=== PATIENT | female | born 1990 | race Caucasian/White ===

== ENCOUNTER 2017-02-02 12:44 | Emergency (ER) | payer OTHER ==
[2017-02-02 13:04] VITALS: BP 121/77; PULSE 88; TEMP 98; BMI 33.8
[2017-02-02 14:39] LABS: URINE APPEARANCE SLCLOUDY; URINE BILIRUBIN NEGATIVE (NEGATIVE); URINE BLOOD NEGATIVE (NEGATIVE); URINE COLOR YELLOW; URINE GLUCOSE (UA) NEGATIVE (NEGATIVE); URINE KETONE TRACE (NEGATIVE); URINE NITRITE NEGATIVE (NEGATIVE); URINE UROBILINOGEN NEGATIVE E.U./dl (0.2-1.0)
[2017-02-02 14:43] LABS: URINE LEUK ESTERASE 3+ (NEGATIVE); URINE PROTEIN 1+ (NEGATIVE)
[2017-02-02 14:45] LABS: URINE MUCUS FEW; URINE RBC 17 /hpf (0-3); URINE WBC 78 /hpf (3-5)
[2017-02-02] MEDS ORDERED: IBUPROFEN 600 MG TABLET (FP) PO ONE (15:36)
--- NOTE | 2017-02-02 15:39 | PDOC ---
History of Present Illness - General Chief Complaint: Vaginal Sxs Stated Complaint: VAGINAL PROBLEM Time Seen by Provider: 02/02/17 15:10 History Source: Patient Exam Limitations: No Limitations - History of Present Illness Travel History: No Initial Comments: 02/02/17 15:34 26 yr female with c/o genital herpes for 4 days given antiviral medications yesterday started yesterday. Pt has burning with urination. Pt was treated for chlamydia and ghonorrhea 3 days ago. Pt denies abd pain neg fever or chills neg diarrhea. Pain Radiation: reports: no radiation Past History - Past Medical History Allergies/Adverse Reactions: Allergies Allergy/AdvReac Type Severity Reaction Status Date / Time No Known Allergies Allergy Verified 02/02/17 13:02 Home Medications: Ambulatory Orders Ibuprofen 800 mg PO TID PRN #25 tablet 02/02/17 Other medical history: none - Psycho/Social/Smoking Cessation Hx Suicidal Ideation: No Smoking History: Never smoked Have you smoked in the past 12 months: No Information on smoking cessation initiated: No Hx Alcohol Use: No Drug/Substance Use Hx: No *Physical Exam - Vital Signs Last Vital Signs Temp Pulse Resp BP Pulse Ox 98.0 F 88 18 121/77 100 02/02/17 13:02 02/02/17 13:02 02/02/17 13:02 02/02/17 13:02 02/02/17 13:02 - Physical Exam Comments: 02/02/17 15:39 General Appearance: Yes: Nourished, Appropriately Dressed HEENT: positive: EOMI, JOHNNY Neck: negative: Tender Respiratory/Chest: positive: Lungs Clear, Normal Breath Sounds Cardiovascular: positive: Regular Rhythm, Regular Rate Female Pelvic Exam: positive: lesions. negative: CMT, discharge Rectal Exam: positive: other (anus with multiple macular ulcerations ) Musculoskeletal: positive: Normal Inspection Extremity: positive: Normal Capillary Refill, Normal Inspection, Normal Range of Motion Integumentary: positive: Normal Color, Dry, Warm Neurologic: positive: Fully Oriented, Alert, Normal Mood/Affect, Normal Response , Motor Strength 5/5 ED Treatment Course - ADDITIONAL ORDERS Additional order review: Laboratory Results 02/02/17 02/02/17 14:20 14:20 Urine Color Yellow Urine Appearance Slcloudy Urine pH 7.0 Urine Protein 1+ H Urine Glucose (UA) Negative Urine Ketones Trace H Urine Blood Negative Urine Nitrite Negative Urine Bilirubin Negative Urine Urobilinogen Negative Ur Leukocyte Esterase 3+ H Urine RBC 17 Urine WBC 78 Ur Epithelial Cells Rare Urine Mucus Few Urine HCG, Qual Negative Medical Decision Making - Medical Decision Making 02/02/17 15:49 cc: painful genital herpes pt took 2 doses of the antiviral medication no fever will check HIV, hepatitis , RPR will give motrin for pain *DC/Admit/Observation/Transfer Diagnosis at time of Disposition: Herpes virus disease - Discharge Dispostion Disposition: HOME Condition at time of disposition: Good - Prescriptions Prescriptions: Ibuprofen 800 mg PO TID PRN #25 tablet PRN Reason: Pain - Patient Instructions Additional Instructions: 02/02/17 1. As discussed, a screening test for the HIV virus was performed today. Your HIV test is Negative (normal). 2. As discussed, if you engaged in high risk-behavior in the three (3) months prior to this test, you could still potentially be at risk and you will need to be re-tested. 3. As discussed, avoid any high risk behavior (such as unprotected sex or needle-sharing) in the future to minimize the chances of janett HIV. cool compresses to the area of pain every few hours for 10-15 minutes lukewarm baths NO SOAP take motrin 800mg every 6hrs for pain as prescribed apply vaseline or A&D ointment to the area of sores to help prevent burning when you urinate avoid any sexual activity follow with your fundraising manager if any worsening symptoms
[2017-02-02] MEDS ORDERED: IBUPROFEN 400 MG TABLET (FP) PO ONE (15:45)
[2017-02-02 17:07] LABS: HIV 1 & 2 AB NEGATIVE; HIV 1 AGp24 NEGATIVE
== END 2017-02-02 17:22 | disposition home or self-care (01) ==
LOC: JERFT 12:44
DX: A60.04 Herpesviral vulvovaginitis (principal)
CPT/HCPCS: 36415; 80074; 81003; 81015; 84703; 86593; 87086; 87389; 87491; 87591; 99281-25

== ENCOUNTER 2024-01-03 20:49 | Emergency (ER) | payer OTHER ==
[2024-01-03 20:53] VITALS: RESP 20; TEMP 98.8; BMI 26.5
[2024-01-03 21:20] VITALS: BP 135/63
[2024-01-03 21:53] VITALS: PULSE 72
== END 2024-01-03 22:01 | disposition home or self-care (01) ==
LOC: JERFT 20:49
PROC: 0HQGXZZ Repair Left Hand Skin, External Approach (ICD-10-PCS; principal; 2024-01-03)
DX: S61.412A Laceration without foreign body of left hand, initial encounter (principal); W26.8XXA Contact with other sharp object(s), not elsewhere classified, initial encounter
CPT/HCPCS: 99282-25